=== PATIENT | female | born 1960 ===

== ENCOUNTER 2018-03-25 13:27 | Outpatient (CLI) | payer BC ==
--- NOTE | 2018-03-25 16:18 | Diagnostic Imaging Report ---
Indication: Cough Technique: 2 views of the chest Comparison: none Findings: Lungs and pleural spaces are clear. Heart size is normal. Impression: No acute process
== END 2018-03-25 15:27 | disposition home or self-care (01) ==
LOC: RAD 13:27
DX: R05 Cough (principal)
CPT/HCPCS: 71046; 96360